=== PATIENT | female | born 1960 | race African-American/Black ===

== ENCOUNTER 2017-05-25 06:02 | Day surgery (SDC) | payer SELFPAY ==
[2017-05-20 14:34] VITALS: BMI 22.8
[2017-05-25 06:23] VITALS: TEMP 98.1
[2017-05-25] MEDS ORDERED: BACITRACIN 3.5 GM OPTHALMIC OINT TUBE ONE (06:45)
[2017-05-25] MEDS ORDERED: POVIDONE-IODINE 5% OPHTHALMIC PREP 30 ML SOLUTION ONE (06:45)
[2017-05-25] MEDS ORDERED: BUPIVACAINE HCL/PF 0.5% (5MG/ML) 10 ML VIAL ONE (06:45)
[2017-05-25] MEDS ORDERED: MIDAZOLAM HCL 2 MG/2 ML SINGLE DOSE VIAL ONE (06:45)
[2017-05-25] MEDS ORDERED: TETRACAINE 0.5% OPHTH SOLN 2 ML BOTTLE ONE (06:45)
[2017-05-25] MEDS ORDERED: LIDOCAINE 1%/EPI 1:100000 (20 ML MULTI DOSE VIAL) ONE (06:45)
[2017-05-25] MEDS ORDERED: LIDOCAINE HCL/PF 2% SDV 5ML VIAL ONE (06:46)
[2017-05-25] MEDS ORDERED: oxyCODONE HCL 5 MG TABLET PO PRN (06:59)
[2017-05-25] MEDS ORDERED: ONDANSETRON 4 MG/2 ML VIAL IVPUSH PRN (06:59)
[2017-05-25] MEDS ORDERED: LACTATED RINGERS SOLUTION 1,000 ML IV SCH (07:00)
[2017-05-25] MEDS ORDERED: PROPOFOL 20 ML ONE (07:05)
--- NOTE | 2017-05-25 10:59 | OP ---
DATE OF OPERATION: 05/25/2017 PREOPERATIVE DIAGNOSIS: Dermatochalasis with nasal fibromas, bilateral upper lids. POSTOPERATIVE DIAGNOSIS: Dermatochalasis with fibromas, bilateral upper lids. PROCEDURE: Blepharoplasty, both upper lids. SURGEON: Krystian De Leon MD ANESTHESIA: Local with sedation. COMPLICATIONS: None. ESTIMATED BLOOD LOSS: Less than 2 mL. OPERATIVE REPORT: Patient brought to the operating room, placed on the operating room table, vital signs monitored by Anesthesia. She was marked somewhat preoperatively in the holding area. Tetracaine was placed in both eyes in the operating room, and then further marking was carried out, marking the lid crease approximately 10.5 mm above lid margin where her yocha dehe crease was and then determining how much skin could be removed from each of the upper lids without causing lash eversion, and these were marked symmetrically and pinched, and after the ellipses were marked, they were pinched with 2 smooth forceps to ensure that there was adequate skin left for eyelid closure. Once these were completely marked, timeout was performed. Intravenous sedation was administered, and 2% Xylocaine 1:200,000 epinephrine was injected subcutaneously throughout the upper lid on the left and right, for a total of 2-3 mL bilaterally. Massage was applied for hemostasis. The patient was prepped and draped in the usual sterile fashion. The following procedure was performed bilaterally. The lid creases were symmetrically incised. The ellipses were then incised completely. The skin was removed with a [place] needle. Hemostasis was achieved with [place] needle. Antibiotic irrigation was used with Bacitracin antibiotic. A of cautery was placed inferior to the incision to accentuate the lid crease. The orbicularis was opened nasally, and gentle spreading with Moss scissors was carried out until the nasal fat pocket was identified, and the fat was then sculpted nasally in both upper lids until a smooth and flattened contour of the nasal upper lids was identified. The wounds were then closed with 3 interrupted silk sutures with a slipknot, and patient was placed in the upright position to assess the symmetry and contour of the upper lid resection, and it looked excellent, with good symmetry and increased dorsal platform both eyes. The patient was placed supine again. These sutures were removed and the wound was closed with combination of interrupted and running 6-0 plain suture with plastic technique. Erythromycin with Bacitracin was placed on the sutures, and the patient was taken to the recovery room in stable condition. KRYSTIAN DE LEON M.D. [id number]
[2017-05-25 11:00] VITALS: BP 120/72; PULSE 64
--- NOTE | 2017-05-27 16:46 | PATH ---
Surgical Pathology Report Patient Name: MARTHA CONROY [facility]. Rec. #: [id number] /Age/Gender: 1960 (Age: 56) / F Account: [id number] Location: [facility] AMBULATORY Taken: 05/25/2017 Received: 05/25/2017 Reported: 05/27/2017 Physicians: Quincy Maier Specimen(s) Received A: RIGHT UPPER EYELID B: LEFT UPPER EYELID Clinical History Dermatochalasis Final Diagnosis A. UPPER EYELID, RIGHT, BLEPHAROPLASTY: SKIN WITH NO PATHOLOGIC FINDINGS. B. UPPER EYELID, LEFT, BLEPHAROPLASTY: SKIN WITH NO PATHOLOGIC FINDINGS. Electronically Signed Milady Villarreal M.D. Gross Description A. Received in formalin labeled "right upper eyelid," is a 4.5 x 0.6 cm narayanan, elliptical, unoriented skin shave. No discrete lesions are identified. [employer] sections are submitted in one cassette. B. Received in formalin labeled "left upper eyelid," is a 5.0 x 0.5 cm narayanan, elliptical, unoriented skin shave. No discrete lesions are identified. [employer] sections are submitted in one cassette. /05/26/2017 saudi05/26/2017
== END 2017-05-25 10:50 | disposition home or self-care (01) ==
LOC: FASU 06:02
PROVIDERS: ATTEND Ophthalmology
PROC: 08SN0ZZ Reposition Right Upper Eyelid, Open Approach (ICD-10-PCS; 2017-05-25)
PROC: 08SP0ZZ Reposition Left Upper Eyelid, Open Approach (ICD-10-PCS; principal; 2017-05-25 07:28)
DX: H02.834 Dermatochalasis of left upper eyelid (principal); H02.831 Dermatochalasis of right upper eyelid
CPT/HCPCS: 88304-TC; 94760

== ENCOUNTER 2022-09-24 13:18 | Emergency (ER) | payer OTHER ==
[2022-09-24 13:44] VITALS: BP 140/94; PULSE 71; RESP 18; TEMP 98.2; BMI 24.3
[2022-09-24] MEDS ORDERED: ACETAMINOPHEN 500 MG TABLET (FP) PO ONE (14:56)
== END 2022-09-24 16:58 | disposition home or self-care (01) ==
LOC: JER 13:18
DX: M54.2 Cervicalgia (principal); M43.6 Torticollis; V43.52XA Car driver injured in collision with other type car in traffic accident, initial encounter; Y93.I9 Activity, other involving external motion; Y92.488 Other paved roadways as the place of occurrence of the external cause
CPT/HCPCS: 70450-TC; 72125-TC; 99284-25

== ENCOUNTER 2023-01-07 15:04 | Emergency (ER) | payer OTHER ==
[2023-01-07 15:10] VITALS: RESP 18; BMI 24.3
[2023-01-07 16:37] LABS: BASO % 0.5 % (0-2.0); EOS % 3.5 % (0-4.5); HEMATOCRIT 38.2 % (32.4-45.2); HEMOGLOBIN 12.4 GM/dL (10.7-15.3); LYMPH % 50.4 % (8-40); MCH 27.5 pg (25.7-33.7); MCHC 32.5 g/dl (32.0-36.0); MEAN CELL VOLUME 84.6 fl (80-96); MEAN PLT VOLUME 8.5 fl (7.5-11.1); MONO % 8.5 % (3.8-10.2); NEUT % 37.1 % (42.8-82.8); PLATELET COUNT 259 10^3/uL (134-434); RBC 4.52 M/mm3 (3.60-5.2); RDW 13.6 % (11.6-15.6); WHITE BLOOD COUNT 5.5 K/mm3 (4.0-10.0)
[2023-01-07 16:55] LABS: POTASSIUM 3.8 mmol/L (3.5-5.1)
[2023-01-07 16:57] LABS: CALCIUM 9.7 mg/dL (8.5-10.1)
[2023-01-07 16:58] LABS: ALBUMIN 3.9 g/dl (3.4-5.0); BLOOD UREA NITROGEN 15.1 mg/dL (7-18)
[2023-01-07 17:01] LABS: CREATININE 0.8 mg/dL (0.55-1.3)
[2023-01-07 17:02] LABS: BILIRUBIN,TOTAL 0.4 mg/dL (0.2-1)
[2023-01-07 18:19] VITALS: BP 150/90; PULSE 72; TEMP 98.7
== END 2023-01-07 18:20 | disposition home or self-care (01) ==
LOC: JER 15:04
DX: R06.02 Shortness of breath (principal); R07.9 Chest pain, unspecified; Z20.822 Contact with and (suspected) exposure to COVID-19
CPT/HCPCS: 0241U-QW; 36415; 71275-TC; 80053; 84484; 85025; 93005; 93010; 99285-25; Q9967

== ENCOUNTER 2023-04-29 04:15 | Day surgery (SDC) | payer OTHER ==
[2023-04-26 09:46] VITALS: BMI 24.9
[2023-04-29 08:26] VITALS: TEMP 97.8
[2023-04-29 08:52] VITALS: BP 126/80; PULSE 55; RESP 12
== END 2023-04-29 09:10 | disposition home or self-care (01) ==
LOC: JASU-ENDO 04:15
PROVIDERS: ATTEND Internal Medicine Gastroenterology
PROC: 0DB68ZX Excision of Stomach, Via Natural or Artificial Opening Endoscopic, Diagnostic (ICD-10-PCS; 2023-04-29)
PROC: 0DB78ZX Excision of Stomach, Pylorus, Via Natural or Artificial Opening Endoscopic, Diagnostic (ICD-10-PCS; 2023-04-29)
PROC: 0DJD8ZZ Inspection of Lower Intestinal Tract, Via Natural or Artificial Opening Endoscopic (ICD-10-PCS; principal; 2023-04-29 08:00)
DX: Z12.11 Encounter for screening for malignant neoplasm of colon (principal); K29.50 Unspecified chronic gastritis without bleeding
CPT/HCPCS: 88305-TC; 88342-TC